=== PATIENT | male | born 1965 | race Caucasian/White ===

== ENCOUNTER → 2016-08-25 | Outpatient (CLI) | payer BC ==
[~2016-08-25] MED LIST: CHILD ASPIRIN81 M1 PO; INDOCIN50 MG PO
== END | disposition home or self-care (01) ==
LOC: RES 08:21
DX: R06.2 Wheezing (principal)
CPT/HCPCS: 94070; 94726; 94729

== ENCOUNTER → 2016-09-01 | Outpatient (CLI) | payer BC ==
[~2016-09-01] VITALS: Ht 180.3 cm; Wt 106.6 kg
[~2016-09-01] MED LIST changes: +GLUCOPHAGE1000 MG PO
[2016-09-01 12:26] LABS: POINT-OF-CARE METER ID UU13113694
[2016-09-01 13:23] LABS: ANION GAP 11 MEQ/L (2-14); CHLORIDE 103 MEQ/L (99-109); GFR ESTIMATE (CALCULATED) > 59 mL/min/; GLUCOSE 167 mg/dL (70-99); SAMPLE HEMOLYSIS CHECK 0; SAMPLE ICTERIC CHECK 0; SAMPLE LIPEMIA CHECK 0; SODIUM 140 MEQ/L (136-147); UREA NITROGEN (BUN) 12 mg/dL (9-23)
== END | disposition home or self-care (01) ==
LOC: AMB 11:40
PROVIDERS: Anesthesiology; Internal Medicine
PROC: 0DJD8ZZ Inspection of Lower Intestinal Tract, Via Natural or Artificial Opening Endoscopic (ICD-10-PCS; principal; 2016-09-01)
DX: Z12.11 Encounter for screening for malignant neoplasm of colon (principal); Z80.0 Family history of malignant neoplasm of digestive organs; R10.31 Right lower quadrant pain; Z84.81 Family history of carrier of genetic disease; K64.8 Other hemorrhoids; E11.9 Type 2 diabetes mellitus without complications; Z80.3 Family history of malignant neoplasm of breast; Z80.41 Family history of malignant neoplasm of ovary; Z80.8 Family history of malignant neoplasm of other organs or systems; R93.5 Abnormal findings on diagnostic imaging of other abdominal regions, including retroperitoneum; Z79.84 Long term (current) use of oral hypoglycemic drugs
CPT/HCPCS: 80048; 82948; 93005; J2250; J3010

== ENCOUNTER 2017-05-07 20:28 | Emergency (ER) | payer BC ==
[~2017-05-07] VITALS: Ht 180.3 cm; Wt 111.0 kg
[2017-05-07] MEDS ORDERED: ERYTHROMYC1 APPLICAT LEFT EYE (23:59)
[2017-05-08 00:15] VITALS: BP 139/71
== END 2017-05-08 00:19 | disposition home or self-care (01) ==
LOC: EME 20:28
DX: S05.02XA Injury of conjunctiva and corneal abrasion without foreign body, left eye, initial encounter (principal); H11.32 Conjunctival hemorrhage, left eye; W50.0XXA Accidental hit or strike by another person, initial encounter; R73.03 Prediabetes; F17.200 Nicotine dependence, unspecified, uncomplicated
CPT/HCPCS: 99281; 99284

== ENCOUNTER 2017-06-16 19:28 | Emergency (ER) | payer BC ==
[~2017-06-16] VITALS: Ht 180.3 cm; Wt 111.0 kg
[~2017-06-16 19:28] MED LIST changes: +ERYTHROMYC1 APPLICAT LEFT EYE
[2017-06-16] MEDS ORDERED: NAPROXEN500 MG PO (21:45)
[2017-06-16 22:06] VITALS: BP 128/76
== END 2017-06-16 22:11 | disposition home or self-care (01) ==
LOC: EME 19:28 → EXP 19:28
DX: S43.402A Unspecified sprain of left shoulder joint, initial encounter (principal); W00.0XXA Fall on same level due to ice and snow, initial encounter; F17.200 Nicotine dependence, unspecified, uncomplicated; E11.9 Type 2 diabetes mellitus without complications; Z79.84 Long term (current) use of oral hypoglycemic drugs
CPT/HCPCS: 73030; 99281; 99282

== ENCOUNTER → 2017-08-30 | Outpatient (CLI) | payer OTHER ==
[~2017-08-30] MED LIST changes: +NAPROXEN500 MG PO
== END | disposition home or self-care (01) ==
LOC: CDC 15:52
DX: G56.02 Carpal tunnel syndrome, left upper limb (principal); G56.22 Lesion of ulnar nerve, left upper limb
CPT/HCPCS: 93000